=== PATIENT | female | born 1995 | race Native Hawaiian/Other Pacific Islander ===

== ENCOUNTER 2021-07-06 05:26 | Inpatient (IN) | payer MEDICAID ==
[2021-07-06] MEDS ORDERED: Acetaminophen 500 MG Tab PO ONE (06:00)
[2021-07-06] MEDS ORDERED: Dextrose 5%-Lactated Ringers 1,000 ML IV SCH ×2 (06:00→11:15)
[2021-07-06] MEDS ORDERED: Celecoxib 200 MG Cap PO ONE (06:00)
[2021-07-06] MEDS ORDERED: Scopolamine 1.5 MG Transdermal Patch TOP SCH (06:00)
[2021-07-06 06:04] LABS: HEMOGLOBIN A1C 6.4 % (4.5-6.2)
[2021-07-06] MEDS ORDERED: cefOXitin 2 GM Vial ONE (06:37)
[2021-07-06] MEDS ORDERED: fentaNYL 250 MCG/5 ML SDV ONE ×2 (07:03→07:47)
[2021-07-06] MEDS ORDERED: Dexamethasone 4 MG/ML SDV ONE (07:04)
[2021-07-06] MEDS ORDERED: Rocuronium 50 MG/5 ML Vial ONE ×2 (07:04→08:38)
[2021-07-06] MEDS ORDERED: Propofol 200 MG/20 ML SDV ONE (07:04)
[2021-07-06] MEDS ORDERED: Glycopyrrolate 0.2 MG/ML 5 ML MDV ONE (07:04)
[2021-07-06] MEDS ORDERED: Ondansetron 4 MG/2 ML SDV ONE (07:04)
[2021-07-06] MEDS ORDERED: Neostigmine Methylsulfate 1 MG/ML 5 ML Syringe ONE (07:04)
[2021-07-06] MEDS ORDERED: Succinylcholine 200 MG/10 ML MDV ONE (07:04)
[2021-07-06] MEDS ORDERED: Lactated Ringers 1,000 ML ONE (07:08)
[2021-07-06] MEDS ORDERED: cefOXitin 2 GM in Sodium Chloride 0.9% 50 ML IV ONE (07:15)
[2021-07-06] MEDS ORDERED: Labetalol 20 MG/4 ML Syringe ONE (08:19)
[2021-07-06] MEDS ORDERED: hydrOXYzine HCL 100 MG/2 ML SDV IM ONE (09:34)
[2021-07-06] MEDS ORDERED: Magnesium Sulfate 4.9 GM in Sodium Chloride 0.9% 250 ML IV ONE (10:45)
[2021-07-06] MEDS ORDERED: MAGNESIUM SULFATE IV SCH (10:45)
[2021-07-06] MEDS ORDERED: Ketamine 50 MG in Sodium Chloride 0.9% 49.5 ML IV SCH (10:45)
[2021-07-06] MEDS ORDERED: Ketamine 500 MG/5 ML MDV IV SCH (10:45)
[2021-07-06] MEDS ORDERED: SODIUM CHLORIDE 0.9% IV SCH (10:45)
[2021-07-06] MEDS ORDERED: Cyclobenzaprine 10 MG Tab PO PRN (11:13)
[2021-07-06] MEDS ORDERED: Lactated Ringers 1,000 ML IV SCH (11:15)
[2021-07-06] MEDS: Pantoprazole 40 MG Vial IVPUSH SCH (11:38)
[2021-07-06] MEDS: Insulin Lispro 100 Unit/ML 3 ML KwikPen SUBCUT SCH ×3 (11:41→22:05)
[2021-07-06] MEDS ORDERED: Calcium Gluconate 10% 1 GM/10 ML SDV IVPUSH PRN (12:00)
[2021-07-06] MEDS ORDERED: 50% Dextrose in Water 50 ML Syringe IVPUSH PRN (12:00)
[2021-07-06] MEDS ORDERED: HYDROmorphone 0.5 MG/0.5 ML Syringe IVPUSH PRN (12:00)
[2021-07-06] MEDS ORDERED: Glucagon,Human Recombinant 1 MG Vial IM PRN (12:00)
[2021-07-06] MEDS ORDERED: oxyCODONE 5 MG Tab PO PRN (12:00)
[2021-07-06] MEDS ORDERED: HYDROmorphone 1 MG/ML Syringe IV PRN (12:00)
[2021-07-06] MEDS ORDERED: diphenhydrAMINE 50 MG/ML SDV IVPUSH PRN (12:00)
[2021-07-06] MEDS ORDERED: hydrOXYzine HCL 100 MG/2 ML SDV IM PRN (12:00)
[2021-07-06] MEDS ORDERED: Labetalol 20 MG/4 ML Syringe IVPUSH PRN (12:00)
[2021-07-06] MEDS ORDERED: Metoclopramide 10 MG/2 ML SDV IVPUSH PRN (12:00)
[2021-07-06] MEDS ORDERED: Acetaminophen 500 MG Tab PO PRN (12:00)
[2021-07-06] MEDS: Acetaminophen 500 MG Tab PO SCH ×2 (14:13→22:06)
[2021-07-06] MEDS: cefOXitin 2 GM in Sodium Chloride 0.9% 50 ML IV SCH ×2 (14:13→19:49)
[2021-07-06] MEDS: Ondansetron 4 MG/2 ML SDV IVPUSH PRN ×2 (14:25→19:49)
[2021-07-06] MEDS: MVI, Adult with Vitamin K 10 ML, Thiamine 200 MG, Zinc/Copper/Manganese/Selenium 1 ML i... IV SCH ×4 (15:41)
--- NOTE | 2021-07-06 17:49 | PCM.EKG ---
#1 Interpretation EKG Date: 07/06/21 Time: 05:52 Rhythm: NSR Rate (Beats/Min): 79 Simms: Normal P-Wave: Present QRS: Normal ST-T: Normal QT: Normal MA/PQ Interval: normal Comparison: NA - No Prior EKG
[2021-07-06] MEDS: Heparin Sodium 5,000 Units/ML Vial SUBCUT SCH (18:17)
[2021-07-07] MEDS: cefOXitin 2 GM in Sodium Chloride 0.9% 50 ML IV SCH ×3 (03:26→13:24)
[2021-07-07] MEDS ORDERED: Iopamidol 612 MG/ML 50 ML SDV PO STA (03:27)
[2021-07-07] MEDS: traMADol 50 MG Tab PO PRN ×3 (04:20→21:30)
[2021-07-07] MEDS: Insulin Lispro 100 Unit/ML 3 ML KwikPen SUBCUT SCH (04:21)
[2021-07-07] MEDS: Heparin Sodium 5,000 Units/ML Vial SUBCUT SCH ×2 (05:52→17:15)
[2021-07-07] MEDS: Acetaminophen 500 MG Tab PO SCH ×3 (05:52→21:26)
[2021-07-07] MEDS: Levothyroxine 50 MCG Tab PO SCH (07:35)
[2021-07-07] MEDS ORDERED: Lactated Ringers 1,000 ML IV SCH (08:00)
[2021-07-07] MEDS: Celecoxib 200 MG Cap PO SCH ×2 (10:17→21:26)
[2021-07-07] MEDS: SCOPOLAMINE PATCH CHECK TOP SCH (10:17)
[2021-07-07] MEDS: Pantoprazole 40 MG Vial IVPUSH SCH (13:24)
[2021-07-07] MEDS: MVI, Adult with Vitamin K 10 ML, Thiamine 200 MG, Zinc/Copper/Manganese/Selenium 1 ML i... IV SCH ×4 (16:04)
[2021-07-08] MEDS: Acetaminophen 500 MG Tab PO SCH (05:35)
[2021-07-08] MEDS: Heparin Sodium 5,000 Units/ML Vial SUBCUT SCH (05:35)
[2021-07-08] MEDS: Levothyroxine 50 MCG Tab PO SCH (07:50)
[2021-07-08] MEDS: Celecoxib 200 MG Cap PO SCH (08:07)
[2021-07-08] MEDS: SCOPOLAMINE PATCH CHECK TOP SCH (08:09)
[2021-07-08] MEDS ORDERED: Cyanocobalamin (Vitamin B12) 1,000 MCG/ML SDV IM ONE (09:00)
[2021-07-08] MEDS ORDERED: Magnesium Hydroxide 400 MG/5 ML Susp 30 ML Cup PO PRN (09:59)
--- NOTE | 2021-07-09 09:24 | CR ---
UGI Limited HISTORY: Postbariatric surgery FINDINGS: Patient swallowed water-soluble contrast. Upright views of the abdomen show no evidence of extravasation or obstruction. There is a surgical drain in the left upper quadrant. There was some delay in small bowel transit IMPRESSION: Status post bariatric surgery No extravasation or obstruction seen
--- NOTE | 2021-07-09 14:01 | PN ---
DATE OF SERVICE: 07/07/2021 The patient is postop day 1 from a laparoscopic Shahrzad-en-Y gastric bypass along with liver biopsy and repair of paraesophageal hernia. She is doing well at this point. Blood sugar is running postoperative with Accu-Cheks and otherwise move up to a step-2 diet today. Maximize activity and work with pulmonary toilet. Skyler Matthews MD /[id number]
--- NOTE | 2021-07-09 14:25 | DISCH ---
FINAL DIAGNOSES: 1. Morbid obesity. 2. Marked hepatomegaly. 3. Paraesophageal diaphragmatic hernia. 4. Treated hypothyroidism. 5. Impaired fasting glucose (preoperative hemoglobin A1c 6.4). OPERATIVE PROCEDURES DONE: On 07/06, diagnostic laparoscopy with: 1. Laparoscopic Shahrzad-en-Y gastric bypass with long limb gastroenterostomy. 2. Sanya-Cut needle liver biopsy. 3. Repair of paraesophageal diaphragmatic hernia. SUMMARY: This is a 25-year-old female presenting with longstanding morbid obesity and increasingly significant comorbidities. After preoperative evaluation and discussion, she wished to proceed with a gastric bypass procedure. This was done on the date of admission with the additional procedures as listed above. Postoperatively, she has had no significant problems. She is presently taking only Tylenol and Celebrex for pain. Her blood sugars have normalized off metformin postoperatively and she will be discharged home with no metformin, but she will be checking and recording her blood sugars t.i.d. at various times and bring in a log of her blood sugars to her first appointment. First appointment will be with Arely Napoles at [facility] on 07/17/2021. She will be instructed to stay on a step-2 diet until the first postoperative visit, and she will not need to be starting her vitamins until that time. /[id number]
--- NOTE | 2021-07-18 07:05 | OR ---
DATE OF PROCEDURE: 07/06/2021 SURGEON: Skyler Matthews MD PREOPERATIVE DIAGNOSIS: Morbid obesity. POSTOPERATIVE DIAGNOSES: 1. Morbid obesity. 2. Marked hepatomegaly. 3. Paraesophageal diaphragmatic hernia. OPERATIVE PROCEDURES: Diagnostic laparoscopy with: 1. Laparoscopic Shahrzad-en-Y gastric bypass along with gastroenterostomy (55749). 2. Sanya-Cut needle liver biopsy (87613). 3. Repair of paraesophageal diaphragmatic hernia (54050). ANESTHESIA: General. INDICATIONS FOR PROCEDURE: This is a 25-year-old female presenting with longstanding morbid obesity and increasingly significant comorbidities. After preoperative evaluation and discussion, she wished to proceed with a gastric bypass procedure. Potential risks including bleeding, infection, leaks from various GI tract closures, and problems with bowel obstruction over time as well as possibility of cardiopulmonary, septic, or hemorrhagic complications leading to were discussed, and the patient wishes to proceed. DETAILS OF PROCEDURE: The patient was taken to the operating room and placed in a supine position. After general endotracheal anesthesia was induced, she was converted to a lithotomy position, and the abdomen prepped and draped. At 15 cm inferior and 5 cm left of the xiphoid process, a transverse incision was made and the peritoneal cavity entered under direct vision with an Optiview trocar, inflated to 15 mmHg pressure with CO2. Laparoscope was reinserted. No underlying trocar insertion site injuries were seen. Following this, 5 additional trocars were placed across her mid abdomen. Bilateral transversus abdominis plane blocks were placed. Liver was noted to be markedly fatty infiltrated. Sanya-Cut needle biopsies were obtained from left lobe of the liver. Minimal bleeding from biopsy sites was controlled with electrocautery. The omentum was then divided in the midline up to the level of the transverse colon. This allowed identification of the small bowel to the ligament of Treitz. Small bowel was then traced out 150 cm distal to that point. It was divided transversely with a SPEEDY stapler. Small bowel was then traced out an additional 150 cm where the [id number] enteroenterostomy was accomplished with internal firing of the Endo-SPEEDY 60 mm stapler. Common opening was then closed transversely with the same stapler, angles anastomosed, and mesenteric defect was approximated with some 0 Ethibond stitch along with fibrin sealant. The divided end of the Shahrzad limb was then brought through the antecolic position up to the level of the gastroesophageal junction without tension. The liver was then retracted anteriorly. The patient was noted to have moderate-sized paraesophageal diaphragmatic hernia containing some perigastric fat along with a tongue of omentum. This was reduced, and the peritoneum overlying incised and reflected downward. The diaphragmatic hernia was then repaired anteriorly with some 0 Ethibond sutures and reinforced with PTFE pledgets. The gastrointestinal balloon catheter was then inflated to 15 mL and pulled up snugly against the EG junction. Gastric wall over the apex of balloon was marked with electrocautery, and balloon catheter deflated and withdrawn. The lesser omental tissue adjacent to gastric cardia was then incised allowing dissection behind the stomach at that level. Pouch formation was initiated with transverse firing of the SPEEDY stapler at the level of the cauterized rk in the gastric cardia and then completed with additional SPEEDY sourav up to and through the angle of His. Upon completion of the pouch, both staple lines were noted to be intact. The anvil of a 25 mm EEA stapler was then attached to a Brandon sump-type tube. The latter was brought down through the mouth and taken out through a small opening in the gastric pouch allowing the anvil likewise to be placed within the gastric pouch. The divided end of the Shahrzad limb was then opened and main body of EEA stapler passed several centimeters into the lumen of the small bowel, brought up the anvil and united with it, thus creating the gastrojejunostomy. Upon removal of the stapler, double donuts of mucosa were noted within it. The small bowel was closed off with a vascular staple line. Gastrojejunostomy was reinforced with 3-0 Vicryl seromuscular stitch along with fibrin sealant. Leak test was accomplished with injection of 120 mL of air in the gastric pouch while it was submerged with cefoxitin-containing saline solution. No leaks were identified. A single Brown-Godoy drain was then taken out through the left lateral trocar site, positioned adjacent to the gastrojejunostomy, and from there up into the splenic fossa. At that point, no further problems were noted, trocars were removed, and peritoneal cavity deflated. The incisions were closed at the skin level with 4-0 Vicryl stitch, which was also used to fix the drain, and the patient was taken to the recovery room in satisfactory condition. There were no evident complications. Skyler Matthews MD /[id number]
== END 2021-07-08 10:23 | disposition home or self-care (01) | DRG 621 ==
LOC: JP.SDS 05:26 → JP.MS 09:50 → EDSTATUS 12:15
PROVIDERS: ADMIT Surgery; ATTEND Surgery
PROC: 0D164ZA Bypass Stomach to Jejunum, Percutaneous Endoscopic Approach (ICD-10-PCS; principal; 2021-07-06)
PROC: 0FB24ZX Excision of Left Lobe Liver, Percutaneous Endoscopic Approach, Diagnostic (ICD-10-PCS; 2021-07-06)
PROC: 0BQT4ZZ Repair Diaphragm, Percutaneous Endoscopic Approach (ICD-10-PCS; 2021-07-06)
DX: E66.01 Morbid (severe) obesity due to excess calories (principal); R16.0 Hepatomegaly, not elsewhere classified; K44.9 Diaphragmatic hernia without obstruction or gangrene; E03.9 Hypothyroidism, unspecified; R73.01 Impaired fasting glucose; Z68.43 Body mass index [BMI] 50.0-59.9, adult
CPT/HCPCS: 36415; 74240; 74240-26; 82947; 83036; 83735; 84703; 86850; 86900; 86901; 88307; 88313; 94762; A9270-GY; C9113; J0171; J0330; J0694; J1100; J1170; J1644; J1815; J2405; J2704; J2710; J2795; J3010; J3410; J3411; J3420; J3475; J3490; J7050; J7120; J7121; Q9967